=== PATIENT | female | born 2000 | race Caucasian/White ===

== ENCOUNTER 2020-05-21 06:30 | Inpatient (IN) ==
[2020-05-21] MEDS ORDERED: D5 1/2 NS 1000 ML 1,000 ML IV SCH (06:32)
[2020-05-21] MEDS ORDERED: ANCEF VIAL 1 GRAM IVP ONE (06:32)
[2020-05-21] MEDS ORDERED: LR 1000 ML IV 1,000 ML IV ONE (06:37)
[2020-05-21] MEDS ORDERED: ANCEF 1 GRAM IV PREMIX* 2 G/100 ML BAG IV ONE (06:38)
[2020-05-21] MEDS ORDERED: DECADRON INJ ONE ×2 (06:46→07:20)
[2020-05-21] MEDS ORDERED: NS 1000 ML 1,000 ML ONE ×3 (06:46→08:24)
[2020-05-21] MEDS ORDERED: DILAUDID INJ ONE (06:46)
[2020-05-21 07:13] LABS: BASOPHILS # (AUTO) 0.1 X10^3/uL (0.0-0.1); BASOPHILS % (AUTO) 0.6 % (0.2-1.0); EOSINOPHILS # (AUTO) 0.2 x10^3/uL (0.0-0.2); EOSINOPHILS % (AUTO) 1.5 % (0.9-2.9); HEMOGLOBIN 11.5 g/dL (12.0-16.0); LYMPHOCYTES # (AUTO) 2.4 X10^3/uL (1.3-2.9); LYMPHOCYTES % (AUTO) 22.8 % (21.0-51.0); MEAN CORPUSCULAR HEMOGLOBIN 27.7 pg (27.0-34.0); MEAN CORPUSCULAR HGB CONC 32.9 g/dL (33.0-35.0); MEAN CORPUSCULAR VOLUME 84.4 fL (80.0-100.0); MEAN PLATELET VOLUME 7.1 fL (7.4-11.0); MONOCYTES # (AUTO) 0.5 x10^3/uL (0.3-0.8); MONOCYTES % (AUTO) 4.6 % (0.0-13.0); NEUTROPHILS # (AUTO) 7.3 x10^3/uL (2.2-4.8); NEUTROPHILS % (AUTO) 70.5 % (42.0-75.0); PLATELET COUNT 374 X10^3/uL (150.0-450.0); RED BLOOD COUNT 4.15 X10^6/uL (3.5-5.4); RED CELL DISTRIBUTION WIDTH 16.5 % (11.6-16.5); WHITE BLOOD COUNT 10.3 X10^3/uL (3.6-10.0)
[2020-05-21] MEDS ORDERED: XYLOCAINE 2 % (PLAIN) ONE (07:20)
[2020-05-21] MEDS ORDERED: PITOCIN ONE ×2 (07:20→08:24)
[2020-05-21] MEDS ORDERED: EPHEDRINE SULFATE INJ ONE (07:20)
[2020-05-21 07:24] LABS: ALANINE AMINOTRANSFERASE 13 Units/L (12-78); ALBUMIN 2.5 g/dL (3.4-5.0); ALKALINE PHOSPHATASE 161 Units/L (46-116); ASPARTATE AMINO TRANSFERASE 13 Units/L (15-37); BLOOD UREA NITROGEN 5 mg/dL (7-18); CALCIUM 8.3 mg/dL (8.5-10.1); CARBON DIOXIDE 20.6 mmol/L (21-32); CHLORIDE 104 mmol/L (98-107); COR CA(FOR HYPOALB) 9.5 mg/dL (8.5-10.1); CREATININE 0.55 mg/dL (0.55-1.02); SODIUM 135 mmol/L (136-145); TOTAL PROTEIN 6.9 g/dL (6.4-8.2); eGFR NON BLACK RACES > 60 (>60)
[2020-05-21] MEDS ORDERED: D5 1/2 NS 1L W PITOCIN 20 UNITS/L 20 UNITS/1,000 ML BAG IV ONE (09:03)
[2020-05-21] MEDS ORDERED: DILAUDID INJ IVP PRN (09:03)
[2020-05-21] MEDS ORDERED: ZOFRAN INJ 4 MG VIAL IVP PRN ×2 (09:03→09:25)
[2020-05-21] MEDS ORDERED: PHENERGAN INJ 25 MG IM PRN (09:03)
[2020-05-21] MEDS ORDERED: BENADRYL INJ 50 MG VIAL IVP PRN ×2 (09:03→09:25)
[2020-05-21] MEDS ORDERED: REGLAN INJ 10 MG VIAL IVP PRN ×2 (09:03→09:25)
[2020-05-21 09:24] LABS: BILIRUBIN,URINE NEGATIVE (NEGATIVE); BLOOD/HEMOGLOBIN,URINE 1+ (NEGATIVE); GLUCOSE, URINE NEGATIVE (NEGATIVE); KETONES,URINE NEGATIVE (NEGATIVE); LEUKOCYTE ESTERASE ,URINE NEGATIVE (NEGATIVE); NITRITES,URINE NEGATIVE (NEGATIVE); PROTEIN,URINE 1+ (NEGATIVE); UROBILINOGEN,URINE 1+ (NORMAL)
[2020-05-21] MEDS ORDERED: ADACEL or BOOSTRIX TDaP VACCINE IM ONE ×2 (09:25→12:32)
[2020-05-21] MEDS ORDERED: MYLICON TAB 80 MG CHEW PO PRN (09:25)
[2020-05-21] MEDS ORDERED: PERCOCET TAB 5/325 MG PO PRN ×2 (09:25→16:29)
[2020-05-21] MEDS ORDERED: TORADOL 30 MG VIAL IVP PRN (09:25)
[2020-05-21] MEDS ORDERED: NARCAN INJ IVP PRN (09:25)
[2020-05-21 09:32] LABS: APPEARANCE,URINE HAZY (CLEAR); COLOR,URINE YELLOW (YELLOW)
[2020-05-21 09:33] LABS: AMORPHOUS SEDIMENT,UR 3+ /HPF (NEGATIVE); BACTERIA,URINE NEGATIVE /HPF (NEGATIVE); RBC,URINE 0-2 /HPF (0-3); SQUAMOUS EPITHELIAL CELL,UR NEGATIVE /HPF (NEGATIVE)
[2020-05-21] MEDS ORDERED: D5 1/2 NS 1000 ML 1,000 ML with PITOCIN 20 UNITS IV SCH ×2 (10:00)
[2020-05-21] MEDS ORDERED: MOTRIN TAB 800 MG PO PRN (16:29)
[2020-05-21] MEDS: COLACE CAP 100 MG PO SCH (21:00)
[2020-05-21] MEDS: BACTROBAN TOPICAL OINT TOP SCH (22:00)
[2020-05-22 04:13] LABS: HEMATOCRIT 30.5 % (36.0-47.0); HEMOGLOBIN 9.9 g/dL (12.0-16.0)
[2020-05-22] MEDS: BACTROBAN TOPICAL OINT TOP SCH (06:47)
[2020-05-22] MEDS: COLACE CAP 100 MG PO SCH (08:48)
[2020-05-22] MEDS ORDERED: PRENATAL PLUS PO SCH (09:00)
[2020-05-22 09:09] VITALS: BP 98/55
== END 2020-05-22 09:30 | disposition home or self-care (01) | DRG 784 ==
LOC: LD 06:30 → MED/SURG 09:47
PROVIDERS: ADMIT Specialist; ATTEND Specialist
DX: Z30.2 Encounter for sterilization; Z3A.38 38 weeks gestation of pregnancy; F12.90 Cannabis use, unspecified, uncomplicated; O99.324 Drug use complicating childbirth; N85.8 Other specified noninflammatory disorders of uterus; Z37.0 Single live birth; O24.429 Gestational diabetes mellitus in childbirth, unspecified control; O34.211 Maternal care for low transverse scar from previous cesarean delivery; R87.619 Unspecified abnormal cytological findings in specimens from cervix uteri